=== PATIENT | male | born 1965 | race Caucasian/White ===

== ENCOUNTER 2020-10-01 22:05 | Observation (INO) | payer BC ==
--- NOTE | 2020-10-01 22:26 | ED ---
Dizziness HPI - General Chief Complaint: Recheck/Abnormal Lab/Rx Stated Complaint: ELevated BP, dizziness Time Seen by Provider: 10/01/20 22:25 Source: patient, RN notes reviewed, old records reviewed Mode of arrival: wheelchair Limitations: no limitations - History of Present Illness Initial Comments: This is a 54-year-old male DF for evaluation patient presents today for evaluation of multiple complaints, patient's or dizziness elevated heart rate s ymptoms of lightheadedness and flushness. Does have family history of heart disease with sudden in his brother young age. Patient suffers blood pressure issues but no other significant medical has no change in medications. No fevers no cough or congestion of travel history no sick contacts. No headaches. MD Complaint: dizziness, lightheadedness -: hour(s) Timing: gradual onset Description: sense of movement, "room spinning" History of Same: No History of Trauma: No Severity: mild Improves With: nothing Worsens With: nothing Associated Symptoms: ataxia, confusion, diaphoresis, shortness of breath, weakness - Related Data Home Medications Medication Instructions Recorded Confirmed amLODIPine [Norvasc] 2.5 mg PO DAILY 10/01/20 10/01/20 Allergies Allergy/AdvReac Type Severity Reaction Status Date / Time aspirin Allergy Rash/Hives Verified 10/01/20 23:20 erythromycin base Allergy Nausea & Verified 10/01/20 23:20 [From Erythrocin] Vomiting & Diarrhea Penicillins Allergy Nausea & Verified 10/01/20 23:20 Vomiting & Diarrhea Review of Systems ROS Statement: Those systems with pertinent positive or pertinent negative responses have been documented in the HPI. ROS Other: All systems not noted in ROS Statement are negative. Past Medical History Past Medical History: Hypertension Additional Past Medical History / Comment(s): vertigo History of Any Multi-Drug Resistant Organisms: None Reported Past Surgical History: Orthopedic Surgery Smoking Status: Never smoker Past Alcohol Use History: Occasional Past Drug Use History: None Reported General Exam Limitations: no limitations General appearance: alert, in no apparent distress, anxious Head exam: Present: atraumatic, normocephalic, normal inspection Eye exam: Present: normal appearance, PERRL, EOMI. Absent: scleral icterus, conjunctival injection, periorbital swelling ENT exam: Present: normal exam, mucous membranes moist Neck exam: Present: normal inspection. Absent: tenderness, meningismus, lymphadenopathy Respiratory exam: Present: normal lung sounds bilaterally. Absent: respiratory distress, wheezes, rales, rhonchi, stridor Cardiovascular Exam: Present: regular rate, normal rhythm, normal heart sounds. Absent: systolic murmur, diastolic murmur, rubs, gallop, clicks GI/Abdominal exam: Present: soft, normal bowel sounds. Absent: distended, tenderness, guarding, rebound, rigid Extremities exam: Present: normal inspection, full ROM, normal capillary refill. Absent: tenderness, pedal edema, joint swelling, calf tenderness Back exam: Present: normal inspection Neurological exam: Present: alert, oriented X3, CN II-XII intact Psychiatric exam: Present: normal affect, normal mood Skin exam: Present: warm, dry, intact, normal color. Absent: rash Course Vital Signs 10/01/20 10/02/20 22:06 00:14 Temperature 97.8 F Pulse Rate 93 89 Respiratory 18 18 Rate Blood Pressure 165/100 152/95 O2 Sat by Pulse 97 97 Oximetry - Reevaluation(s) Reevaluation #1: 10/02/20 00:55 Medical record is reviewed Reevaluation #2: 10/02/20 00:55 Patient remains with occasional symptoms here in the ER, able to amply without significant ataxia currently - Consultations Consultation #1: Focused Dr. Dominguez and we'll admit this patient EKG Findings - EKG Comments: EKG Findings:: EKG shows sinus rhythm 86 W[place] 136 QRS 98 QTc 437 - EKG Results: EKG: interpreted by ERMD (EKG is sinus rhythm 80 W[place] 160 QRS 92 QTC 440) Medical Decision Making - Medical Decision Making 54 male with concern for vertiginous CVA versus chest pain arrhythmia. Patient will be admitted for cardiology and neurology to see - Lab Data Result diagrams: 10/01/20 23:21 10/01/20 23:21 Lab Results 10/01/20 10/01/20 10/01/20 Range/Units 23:21 23:21 23:21 WBC 8.9 (3.8-10.6) k/uL RBC 4.82 (4.30-5.90) m/uL Hgb 15.3 (13.0-17.5) gm/dL Hct 44.0 (39.0-53.0) % MCV 91.3 (80.0-100.0) fL MCH 31.9 (25.0-35.0) pg MCHC 34.9 (31.0-37.0) g/dL RDW 12.5 (11.5-15.5) % Plt Count 207 (150-450) k/uL MPV 7.9 Neutrophils % 70 % Lymphocytes % 22 % Monocytes % 5 % Eosinophils % 1 % Basophils % 0 % Neutrophils # 6.2 (1.3-7.7) k/uL Lymphocytes # 2.0 (1.0-4.8) k/uL Monocytes # 0.5 (0-1.0) k/uL Eosinophils # 0.1 (0-0.7) k/uL Basophils # 0.0 (0-0.2) k/uL PT 11.3 (9.0-12.0) sec INR 1.1 (<1.2) APTT 25.5 (22.0-30.0) sec Sodium 141 (137-145) mmol/L Potassium 3.8 (3.5-5.1) mmol/L Chloride 108 H (98-107) mmol/L Carbon Dioxide 24 (22-30) mmol/L Anion Gap 9 mmol/L BUN 13 (9-20) mg/dL Creatinine 0.93 (0.66-1.25) mg/dL Est GFR (CKD-EPI)AfAm >90 (>60 ml/min/1.73 sqM) Est GFR (CKD-EPI)NonAf >90 (>60 ml/min/1.73 sqM) Glucose 109 H (74-99) mg/dL Plasma Lactic Acid Juan (0.7-2.0) mmol/L Calcium 9.9 (8.4-10.2) mg/dL Phosphorus 2.0 L (2.5-4.5) mg/dL Magnesium 2.0 (1.6-2.3) mg/dL Total Bilirubin 0.3 (0.2-1.3) mg/dL AST 30 (17-59) U/L ALT 46 (4-49) U/L Alkaline Phosphatase 101 (38-126) U/L Creatine Kinase 125 (55-170) U/L CK-MB (CK-2) (0.0-2.4) ng/mL Troponin I (0.000-0.034) ng/mL Total Protein 8.0 (6.3-8.2) g/dL Albumin 4.8 (3.5-5.0) g/dL 10/01/20 10/01/20 Range/Units 23:21 23:21 WBC (3.8-10.6) k/uL RBC (4.30-5.90) m/uL Hgb (13.0-17.5) gm/dL Hct (39.0-53.0) % MCV (80.0-100.0) fL MCH (25.0-35.0) pg MCHC (31.0-37.0) g/dL RDW (11.5-15.5) % Plt Count (150-450) k/uL MPV Neutrophils % % Lymphocytes % % Monocytes % % Eosinophils % % Basophils % % Neutrophils # (1.3-7.7) k/uL Lymphocytes # (1.0-4.8) k/uL Monocytes # (0-1.0) k/uL Eosinophils # (0-0.7) k/uL Basophils # (0-0.2) k/uL PT (9.0-12.0) sec INR (<1.2) APTT (22.0-30.0) sec Sodium (137-145) mmol/L Potassium (3.5-5.1) mmol/L Chloride (98-107) mmol/L Carbon Dioxide (22-30) mmol/L Anion Gap mmol/L BUN (9-20) mg/dL Creatinine (0.66-1.25) mg/dL Est GFR (CKD-EPI)AfAm (>60 ml/min/1.73 sqM) Est GFR (CKD-EPI)NonAf (>60 ml/min/1.73 sqM) Glucose (74-99) mg/dL Plasma Lactic Acid Juan 1.5 (0.7-2.0) mmol/L Calcium (8.4-10.2) mg/dL Phosphorus (2.5-4.5) mg/dL Magnesium (1.6-2.3) mg/dL Total Bilirubin (0.2-1.3) mg/dL AST (17-59) U/L ALT (4-49) U/L Alkaline Phosphatase (38-126) U/L Creatine Kinase (55-170) U/L CK-MB (CK-2) 0.7 (0.0-2.4) ng/mL Troponin I <0.012 (0.000-0.034) ng/mL Total Protein (6.3-8.2) g/dL Albumin (3.5-5.0) g/dL - Radiology Data Radiology results: report reviewed (CT brain CT had neck chest x-ray negative for acute disease), image reviewed Critical Care Time Critical Care Time: Yes Total Critical Care Time: 31 Disposition Clinical Impression: Dizziness, Vertigo Disposition: ADMITTED IP TO THIS [facility] Condition: Fair Is patient prescribed a controlled substance at d/c from ED?: No Referrals: Erick Dominguez MD [Primary Care Provider] - 1-2 days
[2020-10-01] MEDS ORDERED: SODIUM CHLORIDE 0.9% 500 ML 500 ML IV STA (23:11)
[2020-10-01] MEDS ORDERED: SODIUM CHLORIDE 0.9% 1,000 ML IV STA ×2 (23:11)
[2020-10-01 23:49] LABS: Basophils % (A) 0 %; Eosinophils # (A) 0.1 k/uL (0-0.7); Eosinophils % (A) 1 %; HGB 15.3 gm/dL (13.0-17.5); Lymphocytes % (A) 22 %; MCH 31.9 pg (25.0-35.0); MCHC 34.9 g/dL (31.0-37.0); MCV 91.3 fL (80.0-100.0); Mean Platelet Volume 7.9; Monocytes # (A) 0.5 k/uL (0-1.0); Monocytes % (A) 5 %; Neutrophils # (A) 6.2 k/uL (1.3-7.7); Neutrophils % (A) 70 %; Platelet Count 207 k/uL (150-450); RBC 4.82 m/uL (4.30-5.90); RDW 12.5 % (11.5-15.5); WBC 8.9 k/uL (3.8-10.6)
[2020-10-01 23:54] LABS: INR 1.1 (<1.2); Partial Thromboplastin Time 25.5 sec (22.0-30.0); Prothrombin Time 11.3 sec (9.0-12.0)
--- NOTE | 2020-10-01 23:54 | XR ---
EXAMINATION TYPE: XR chest 2V DATE OF EXAM: 10/01/2020 COMPARISON: 06/19/2015 HISTORY: Weakness TECHNIQUE: FINDINGS: Heart and mediastinum are normal. Lungs are clear. Diaphragm is normal. Bony thorax appears normal. Pulmonary vascularity is normal. IMPRESSION: Normal chest. No change.
[2020-10-02 00:13] LABS: Potassium 3.8 mmol/L (3.5-5.1)
--- NOTE | 2020-10-02 00:13 | CT ---
EXAMINATION TYPE: CT brain wo con DATE OF EXAM: 10/02/2020 COMPARISON: None HISTORY: vertigo CT DLP: 196.8 mGycm Automated exposure control for dose reduction was used. Exam performed without contrast. Ventricles have normal size. There is no mass effect nor midline shift. There is no sign of intracran ial hemorrhage. Calvarium is intact. There is no evidence of cerebral edema. IMPRESSION: Negative unenhanced head CT scan.
[2020-10-02 00:14] LABS: ALT 46 U/L (4-49); AST 30 U/L (17-59); African American GFR (CKD) >90 (>60 ml/min/1.73 sqM); Albumin 4.8 g/dL (3.5-5.0); Alkaline Phosphatase 101 U/L (38-126); Anion Gap 9 mmol/L; Blood Urea Nitrogen 13 mg/dL (9-20); Calcium 9.9 mg/dL (8.4-10.2); Carbon Dioxide 24 mmol/L (22-30); Chloride 108 mmol/L (98-107); Creatine Kinase 125 U/L (55-170); Glucose 109 mg/dL (74-99); Non-African American GFR(CKD) >90 (>60 ml/min/1.73 sqM); Sodium 141 mmol/L (137-145); Total Bilirubin 0.3 mg/dL (0.2-1.3)
--- NOTE | 2020-10-02 00:22 | CT ---
EXAMINATION TYPE: CT angio head neck DATE OF EXAM: 10/02/2020 COMPARISON: None HISTORY: vertigo CT DLP: 1960.8 mGycm Automated exposure control for dose reduction was used. CONTRAST: Performed with IV Contrast, patient injected with 65 mL of Isovue 370. There are 3-D post processed images. Images obtained from the aortic arch to the vertex of the brain with IV contrast. There is normal branching pattern of the great vessels on the aortic arch. There is bilateral arteria l flow in the subclavian arteries. There is arterial flow in the common internal and external carotid arteries bilaterally. There is art erial flow in both vertebral arteries. There is wide patency of the carotid artery bifurcations. Ther e is no evidence of carotid or vertebral artery aneurysm or dissection. There is arterial flow in the vertebrobasilar artery system. There is arterial flow in the anterior m iddle and posterior cerebral arteries. I see no evidence of intracranial aneurysm or neovascularity. There is no mass effect. There is normal enhancement of the venous sinuses. There is no evidence of i ntracranial arterial stenosis. IMPRESSION: Negative CT angiogram of the brain. Negative CT angiogram of the neck.
[2020-10-02 00:25] LABS: Creatine Kinase MB 0.7 ng/mL (0.0-2.4); Troponin I <0.012 ng/mL (0.000-0.034)
[2020-10-02] MEDS ORDERED: NITROGLYCERIN SL TABS 0.4 MG TAB SUBLINGUAL PRN (00:58)
[2020-10-02] MEDS: SODIUM CHLORIDE 0.9% 1,000 ML IV SCH ×2 (01:41→08:14)
[2020-10-02] MEDS ORDERED: amLODIPine 5 MG TAB PO SCH (09:00)
--- NOTE | 2020-10-02 09:52 | ECHOF ---
Referral Reason:Thrombus MEASUREMENTS -------- HEIGHT: 180.3 cm WEIGHT: 102.1 kg BP: 144/97 RVIDd: 3.2 cm (< 3.3) IVSd: 1.2 cm (0.6 - 1.1) LVIDd: 5.2 cm (3.9 - 5.3) LVPWd: 1.2 cm (0.6 - 1.1) IVSs: 1.9 cm LVIDs: 2.7 cm LVPWs: 2.2 cm LAESV Index (A-L): 26.37 ml/m Ao Diam: 3.4 cm (2.0 - 3.7) AV Cusp: 2.6 cm (1.5 - 2.6) LA Diam: 4.0 cm (2.7 - 3.8) MV EXCURSION: 27.072 mm (> 18.000) MV EF SLOPE: 206 mm/s (70 - 150) EPSS: 0.7 cm MV E Michele: 0.81 m/s MV DecT: 136 ms MV A Michele: 0.77 m/s MV E/A Ratio: 1.05 RAP: 5.00 mmHg RVSP: 16.66 mmHg FINDINGS -------- This was a technically good study. The left ventricular size is normal. There is mild concentric left ventricular hypertrophy. Overa ll left ventricular systolic function is normal with, an EF between 55 - 60 %. The right ventricle is normal in size. The left atrial size is normal. The right atrial size is normal. The aortic valve is trileaflet and appears structurally normal. The mitral valve is normal. Mild mitral regurgitation is present. The tricuspid valve appears structurally normal. Mild tricuspid regurgitation present. Right vent ricular systolic pressure is normal at < 35 mmHg. There is no pulmonic regurgitation present. The aortic root size is normal. Normal inferior vena cava with normal inspiratory collapse consistent with estimated right atrial pre ssure of 5 mmHg. There is no pericardial effusion. CONCLUSIONS -------- 1. The left ventricular size is normal. 2. There is mild concentric left ventricular hypertrophy. 3. Overall left ventricular systolic function is normal with, an EF between 55 - 60 %. 4. Mild mitral regurgitation is present. 5. Mild tricuspid regurgitation present. 6. There is no pericardial effusion. COMMERCIAL DESIGNER: Frances Solorzano [facility]
--- NOTE | 2020-10-02 11:24 | P.CRDCN ---
History of Present Illness History of present illness: This is a pleasant 54-year-old male past medical history significant for hypertension and vertigo. 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 We have been asked to see in consultation for lightheadedness and dizziness episode. Patient is seen and examined in the emergency department. No acute distress. Patient presents to the emergency department with an episode of lightheadedness and dizziness yesterday. He states he was doing his normal activities with his , cutting the grass, doing lawn work. He had a few cups of coffee that morning. He proceeded to do yoga and shower and started to feel lightheaded and dizzy. He did say he felt he was catching up on his water intake later that day. His lightheadedness and dizziness continued, he checked his blood pressure and heart rate which was 150s/90s and HR 90s, this is high for him. He states his symptoms were different from prior vertigo he had years ago. He was too lightheaded to drive his care to the emergency department. He did not feel like he was going to pass out. He is a non-smoker, non-diabetic. Denies history of stroke or RI. Family history of heart disease with sudden in his brother at young age. In 2016 he had a stress echo which was negative for reversible ischemia. Only medications at home include amlodpine 2.5mg daily. He denies chest pain, shortness of breath, palpitations, syncope, On arrival, EKG sinus rhythm, heart rate 86, no significant STT wave abnormalities. No prior EKG to compare. Chest x-ray with no acute cardiopulmonary process. CT brain was negative for any acute intracranial ab normality. CT angiogram of the neck was negative Laboratory data reviewed, troponin negative 3, CBC unremarkable, COVID-19 negative, sodium 141, potassium 3.8, serum creatinine 0.93, phosphorus 2.0, magnesium 2.0, creatine kinase 125, CKMB 0.7. Patient was hypertensive on admission SBP 150s-160s. Patient was given IV fluid 1.5L Bolus. He states his symptoms have improved. REVIEW OF SYSTEMS At the time of my exam: CONSTITUTIONAL: +lightheaded, +dizziness, Denies fever or chills. CARDIOVASCULAR: Denies chest pain, shortness of breath, orthopnea, PND or palpitations. RESPIRATORY: Denies cough. GASTROINTESTINAL: Denies abdominal pain, diarrhea, constipation, nausea or vomiting. MUSCULOSKELETAL: Denies myalgias. NEUROLOGIC: Denies numbness, tingling, headacbe or weakness. ENDOCRINE: Denies fatigue, weight change, polydipsia or polyurina. GENITOURINARY: Denies burning, hematuria or urgency with micturation. HEMATOLOGIC: Denies history of anemia or bleeding. PHYSICAL EXAMINATION Blood pressure 160/100 heart rate 92 afebrile and maintaining oxygen saturation 99% on room air CONSTITUTIONAL: No apparent distress. HEENT: Head is normocephalic. Pupils are equal, round. Sclerae anicteric. Mucous membranes of the mouth are moist. No JVD. No carotid bruit. CHEST EXAMINATION: Lungs are clear to auscultation. No chest wall tenderness is noted on palpation or with deep breathing. HEART EXAMINATION: Regular rate and rhythm. S1, S2 heard. No murmurs, gallops or rub. ABDOMEN: Soft, nontender. Positive bowel sounds. EXTREMITIES: 2+ peripheral pulses, no lower extremity edema and no calf tenderness. NEUROLOGIC EXAMINATION: Patient is awake, alert and oriented x3. ASSESSMENT Lightheaded, Dizziness, possibly related to dehydration. Hypertension PLAN Increase amlodipine to 5mg daily, monitor blood pressure An acute coronary event has been ruled out with no EKG evidence of ischemia and negative cardiac enzymes. 2D echocardiogram ordered and reviewed, revealed left ventricular systolic function is normal EF 55-60%, mild mitral regurgitation, mild tricuspid regurgitation Obtain orthostatic vital signs Perform stress echo test to assess for stress induced cardiac ischemia. If no acute findings on stress echo, from cardiology perspective, patient can be discharged home and follow up outpatient with Dr. Frazier Thank you kindly for this consultation. Nurse Practitioner note has been reviewed, I agree with a documented findings and plan of care. Patient was seen and examined. Past Medical History Past Medical History: Hypertension Additional Past Medical History / Comment(s): vertigo History of Any Multi-Drug Resistant Organisms: None Reported Past Surgical History: Orthopedic Surgery Smoking Status: Never smoker Past Alcohol Use History: Occasional Past Drug Use History: None Reported - Past Family History Father Family Medical History: Cancer Additional Family Medical History / Comment(s): Liver cancer Mother Family Medical History: Vascular Disorder Additional Family Medical History / Comment(s): Mother is . She of a abdominal aneurysm. Brother(s) Additional Family Medical History / Comment(s): Brother had cardiac ablations. He had a sudden . Medications and Allergies Home Medications Medication Instructions Recorded Confirmed Type amLODIPine [Norvasc] 2.5 mg PO DAILY 10/01/20 10/01/20 History Allergies Allergy/AdvReac Type Severity Reaction Status Date / Time aspirin Allergy Rash/Hives Verified 10/01/20 23:20 erythromycin base Allergy Nausea & Verified 10/01/20 23:20 [From Erythrocin] Vomiting & Diarrhea Penicillins Allergy Nausea & Verified 10/01/20 23:20 Vomiting & Diarrhea Physical Exam Vitals: Vital Signs Temp Pulse Resp BP Pulse Ox 10/02/20 06:35 97.9 F 91 18 144/97 97 10/02/20 03:00 86 18 136/94 97 10/02/20 01:10 97.7 F 74 18 154/94 98 10/02/20 00:14 89 18 152/95 97 10/01/20 22:06 97.8 F 93 18 165/100 97 Intake and Output 10/01/20 10/02/20 10/02/20 22:59 06:59 14:59 Other: Weight 102.058 kg Results 10/01/20 23:21 10/01/20 23:21 Cardiac Enzymes 10/01/20 10/01/20 10/02/20 Range/Units 23:21 23:21 03:12 AST 30 (17-59) U/L CK-MB (CK-2) 0.7 (0.0-2.4) ng/mL Troponin I <0.012 <0.012 (0.000-0.034) ng/mL 10/02/20 Range/Units 05:47 AST (17-59) U/L CK-MB (CK-2) (0.0-2.4) ng/mL Troponin I <0.012 (0.000-0.034) ng/mL Coagulation 10/01/20 Range/Units 23:21 PT 11.3 (9.0-12.0) sec APTT 25.5 (22.0-30.0) sec CBC 10/01/20 Range/Units 23:21 WBC 8.9 (3.8-10.6) k/uL RBC 4.82 (4.30-5.90) m/uL Hgb 15.3 (13.0-17.5) gm/dL Hct 44.0 (39.0-53.0) % Plt Count 207 (150-450) k/uL Comprehensive Metabolic Panel 10/01/20 Range/Units 23:21 Sodium 141 (137-145) mmol/L Potassium 3.8 (3.5-5.1) mmol/L Chloride 108 H (98-107) mmol/L Carbon Dioxide 24 (22-30) mmol/L BUN 13 (9-20) mg/dL Creatinine 0.93 (0.66-1.25) mg/dL Glucose 109 H (74-99) mg/dL Calcium 9.9 (8.4-10.2) mg/dL AST 30 (17-59) U/L ALT 46 (4-49) U/L Alkaline Phosphatase 101 (38-126) U/L Total Protein 8.0 (6.3-8.2) g/dL Albumin 4.8 (3.5-5.0) g/dL Current Medications Generic Name Dose Route Start Last Admin Trade Name Freq PRN Reason Stop Dose Admin Aspirin 325 mg 10/03/20 09:00 Aspirin 325 Mg Tab PO DAILY LUIS Sodium Chloride 1,000 mls @ 100 mls/hr 10/02/20 01:00 10/02/20 01:41 Saline 0.9% IV Not Given .Q10H LUIS Nitroglycerin 0.4 mg 10/02/20 00:58 Nitroglycerin Sl Tabs 0.4 Mg Tab SUBLINGUAL Q5M PRN Chest Pain Intake and Output 10/01/20 10/02/20 10/02/20 22:59 06:59 14:59 Other: Weight 102.058 kg 10/01/20 23:21 10/01/20 23:21
--- NOTE | 2020-10-02 12:26 | P.STRESS ---
- Stress Test Note Stress Test Results/Findings: Exam Performed: stress echo exercise Exam Date: 10/02/20 Reason for Exam: Chest pain Height: 5 ft 10 in Weight: 102.058 kg Protocol: Darci Stage: III Duration of Exercise: 9:02 Resting Heart Rate: 95 Resting Blood Pressure: 129/49 Maximum Achieved Heart Rate: 149 Maximum Achieved Blood Pressure: 163/77 85% PMHR: 143 100% PMHR: 168 METS: 10.3 Technologist Comment: Stress Test Results/Findings: This is a 54-year-old gentleman with history of hypertension who was admitted to the hospital with symptoms of dizziness and lightheadedness. Stress data: Baseline EKG showed sinus rhythm with normal [place] interval and QRS duration. Blood pressure at rest is 129/49 with pulse rate of 95. Patient walked on the Darci protocol for 9 minutes achieving a maximum heart rate of 149 with a blood pressure 163/77. EKGs taken during and after exercise did not reveal any changes of ischemia. Patient did not experience any chest pain or dizziness. Echo data: Baseline equal images showed normal wall motion and thickening. Exercise echo images showed augmentation of wall motion and thickening in all the segments. Final impression: #1. Negative stress test #2. Negative stress echo.
--- NOTE | 2020-10-02 14:48 | P.HPIM ---
History of Present Illness Chief Complaint: Altered mental status/dizziness This is a history and physical an 54-year-old white male with known history of hypertension and history of sinus tachycardia who is admitted secondary to "feeling off." The patient was doing noted yesterday and after this felt disoriented and somewhat lightheaded. No loss of consciousness but these episodes continued and were intermittent. This morning he felt as though there was inability to even drive appropriately with the lightheadedness. No visual loss or amaurosis fugax. No history of seizure disorder or chest pain stated. No overt palpitations. The patient was appropriately admitted computed tomography scan with contrast of the head shows no significant issue. However stress test was also negative. Neurology is not consulted. The patient now has no significant slurred speech no significant nausea, vomiting or diarrhea is stated. Review of Systems Constitutional: Denies chills, Denies fever Eyes: denies blurred vision, denies pain Ears, nose, mouth and throat: Denies headache, Denies sore throat Cardiovascular: Denies chest pain, Denies shortness of breath Gastrointestinal: Denies abdominal pain, Denies diarrhea, Denies nausea, Denies vomiting Integumentary: Denies pruritus, Denies rash Neurological: Reports as per HPI, Reports gait dysfunction, Denies double vision, Denies loss of vision, Denies memory loss Psychiatric: Denies anxiety, Denies depression Past Medical History Past Medical History: Hypertension Additional Past Medical History / Comment(s): vertigo History of Any Multi-Drug Resistant Organisms: None Reported Past Surgical History: Orthopedic Surgery Additional Past Surgical History / Comment(s): R rotator cuff repair, R knee arthroscopy, colonoscopy/benign polypectomy, bilateral myringotomy/tubes. Past Anesthesia/Blood Transfusion Reactions: No Reported Reaction Smoking Status: Never smoker Past Alcohol Use History: Occasional Past Drug Use History: None Reported - Past Family History Father Family Medical History: Cancer Additional Family Medical History / Comment(s): Liver cancer Mother Family Medical History: Vascular Disorder Additional Family Medical History / Comment(s): Mother is . She of a abdominal aneurysm. Brother(s) Additional Family Medical History / Comment(s): Brother had cardiac ablations. He had a sudden . Medications and Allergies Home Medications Medication Instructions Recorded Confirmed Type amLODIPine [Norvasc] 2.5 mg PO DAILY 10/01/20 10/01/20 History Allergies Allergy/AdvReac Type Severity Reaction Status Date / Time aspirin Allergy Rash/Hives Verified 10/01/20 23:20 erythromycin base Allergy Nausea & Verified 10/01/20 23:20 [From Erythrocin] Vomiting & Diarrhea Penicillins Allergy Nausea & Verified 10/01/20 23:20 Vomiting & Diarrhea Physical Exam Vitals: Vital Signs Temp Pulse Resp BP Pulse Ox 10/02/20 13:39 98.9 F 98 18 145/98 98 10/02/20 12:05 105 H 18 135/90 98 10/02/20 09:47 92 18 160/100 99 10/02/20 06:35 97.9 F 91 18 144/97 97 10/02/20 03:00 86 18 136/94 97 10/02/20 01:10 97.7 F 74 18 154/94 98 10/02/20 00:14 89 18 152/95 97 10/01/20 22:06 97.8 F 93 18 165/100 97 Intake and Output 10/01/20 10/02/20 10/02/20 22:59 06:59 14:59 Other: Weight 102.058 kg 102.058 kg - Constitutional General appearance: no acute distress - EENT Eyes: EOMI - Neck Neck: no lymphadenopathy - Respiratory Respiratory: bilateral: CTA - Cardiovascular Rhythm: regular Heart sounds: normal: S1, S2 Abnormal Heart Sounds: no S3 Gallop - Gastrointestinal General gastrointestinal: soft, no tenderness - Integumentary Integumentary: no cellulitis - Neurologic Neurologic: CNII-XII intact Results CBC & Chem 7: 10/01/20 23:21 10/01/20 23:21 Labs: Abnormal Lab Results - Last 24 Hours (Table) 10/01/20 Range/Units 23:21 Chloride 108 H (98-107) mmol/L Glucose 109 H (74-99) mg/dL Phosphorus 2.0 L (2.5-4.5) mg/dL Thrombosis Risk Factor Assmnt - Choose All That Apply Any of the Below Risk Factors Present?: Yes Each Factor Represents 1 point: Age 41-60 years, Obesity (BMI >25) Other Risk Factors: No Other congenital or acquired thrombophilia - If yes, enter type in comment: No Thrombosis Risk Factor Assessment Total Risk Factor Score: 2 Thrombosis Risk Factor Assessment Level: Low Risk Assessment and Plan (1) Hypertension Current Visit: Yes Status: Acute Code(s): I10 - ESSENTIAL (PRIMARY) HYPERTENSION SNOMED Code(s): 06853402 (2) Neurologic gait dysfunction Current Visit: Yes Status: Acute Code(s): R26.9 - UNSPECIFIED ABNORMALITIES OF GAIT AND MOBILITY SNOMED Code(s): 26745755 (3) Dizziness Current Visit: Yes Status: Acute Code(s): R42 - DIZZINESS AND GIDDINESS SNOMED Code(s): 311714648 (4) Vertigo Current Visit: Yes Status: Acute Code(s): R42 - DIZZINESS AND GIDDINESS SNOMED Code(s): 112508415 Plan: Adjust Norvasc appropriate for hypertension. Await neurologic evaluation. Question need for MRI. Cardiology stress test is negative. Continue watch blood pressure closely. IV to KVO. Anticipate discharge in the next 24
[2020-10-02] MEDS: ASPIRIN 81 MG PO SCH (20:53)
--- NOTE | 2020-10-02 22:09 | P.CNNES ---
History of Present Illness Consult date: 10/02/20 Requesting physician: Mina Hester Reason for Consult: Vertigo History of Present Illness: Patient is a 54-year-old male came to the hospital yesterday at 10 PM for 2 episodes of lightheadedness. 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 It lasted for 30 seconds. He did not pay much attention to it. He went home, did some yard work, and later was sitting in the deck. He states that at around 10 PM he got up to take shower and the same feeling came back. The symptoms persisted when he went into the shower, and lasted for about several minutes to half an hour. He asked his family members to check the blood pressure which was 154/100. Patient got concerned therefore decided to come to the ER to be checked out. He did not have any slurred speech, facial droop, problem with the vision, double vision or any focal symptoms otherwise. Patient's vitals on arrival blood pressure 165/100, pulse rate 93, temperature 97.8. Blood pressure has improved now 140/94. CT head was normal. On my review, there is evidence of some opacification of the ethmoid sinus as well as some mucosal congestion of the maxillary sinuses bilaterally. No air fluid level. External auditory canal is clear. CTA of head and neck was normal. No dissection or stenosis. EKG shows normal sinus rhythm with sinus arrhythmia. 2-D echo shows normal left-ventricular size. Mild concentric LVH. EF is 55- 60%. Mild MR. Chest x-ray is normal. EKG shows normal sinus rhythm. Patient had a negative stress test and negative stress echo. Blood test shows normal CBC, PT/PTT, normal electrolytes, renal functions, hepatic panel. CK is normal 125. Troponins negative. Nelson virus PCR negative. Patient states that he has been rated for blood pressure for the last 4 months for it was running around 140/80. 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 He remembers when he was getting out of bed in the morning he had this episode. It lasted for 3-4 days. He underwent extensive workup including ENG, MRI of the internal auditory canal (performed at [facility]), which all came back negative and he was diagnosed with BPPV. He was mostly fine, until couple years ago [place], had similar symptoms. He went to the hospital was again diagnosed with BPPV. In the last fall he was in [facility], when he had similar symptoms lasted for couple days. He did not seek medical attention. He performed his home exercise of Reta-Hallpike and symptoms went away. In between these 3 major episodes, he would have minor symptoms, that was not very bothersome. Patient states that lately he has developed pulsatile tinnitus involving the left ear for the last couple months. He states when he moves his eyes fast, he becomes lightheaded although it is not as severe. Patient denies any tobacco use, very little alcohol. Review of Systems As mentioned in detail in HPI. All other review of systems completely unremarkable. Denies any chest pain shortness of breath wheezing or cough. Denies any focal symptoms except as mentioned above. Past Medical History Past Medical History: Hypertension Additional Past Medical History / Comment(s): vertigo History of Any Multi-Drug Resistant Organisms: None Reported Past Surgical History: Orthopedic Surgery Additional Past Surgical History / Comment(s): R rotator cuff repair, R knee arthroscopy, colonoscopy/benign polypectomy, bilateral myringotomy/tubes. Past Anesthesia/Blood Transfusion Reactions: No Reported Reaction Smoking Status: Never smoker Past Alcohol Use History: Occasional Past Drug Use History: None Reported - Past Family History Father Family Medical History: Cancer Additional Family Medical History / Comment(s): Liver cancer Mother Family Medical History: Vascular Disorder Additional Family Medical History / Comment(s): Mother is . She of a abdominal aneurysm. Brother(s) Additional Family Medical History / Comment(s): Brother had cardiac ablations. He had a sudden . Medications and Allergies Home Medications Medication Instructions Recorded Confirmed Type Aspirin 81 mg PO DAILY chew 10/03/20 Rx amLODIPine [Norvasc] 5 mg PO DAILY #30 tab 10/03/20 Rx Allergies Allergy/AdvReac Type Severity Reaction Status Date / Time aspirin Allergy Rash/Hives Verified 10/01/20 23:20 erythromycin base Allergy Nausea & Verified 10/01/20 23:20 [From Erythrocin] Vomiting & Diarrhea Penicillins Allergy Nausea & Verified 10/01/20 23:20 Vomiting & Diarrhea Physical Examination - Vital Signs Vital Signs: Vital Signs Temp Pulse Pulse Resp BP BP Pulse Ox 10/02/20 14:51 98 F 84 16 140/94 96 10/02/20 13:39 98.9 F 98 18 145/98 98 10/02/20 12:05 105 H 18 135/90 98 10/02/20 09:47 92 18 160/100 99 10/02/20 06:35 97.9 F 91 18 144/97 97 10/02/20 03:00 86 18 136/94 97 10/02/20 01:10 97.7 F 74 18 154/94 98 10/02/20 00:14 89 18 152/95 97 10/01/20 22:06 97.8 F 93 18 165/100 97 Intake and Output 10/02/20 10/02/20 10/02/20 06:59 14:59 22:59 Other: # Voids 1 Weight 102.058 kg Patient is a middle aged male, in no acute distress. Patient is alert awake oriented to time place and person. Speech and language functions are normal. Attention, concentration and fund of knowledge is adequate. On cranial examination, pupils are equal, round and reacting to light, visual scott are full on confrontation with no neglect, extraocular muscles are intact with no nystagmus. Face is symmetric, tongue protrudes to the midline. Palatal elevation and sensation normal, hearing and shoulder shrug normal, facial sensation normal. Shoulder shrug normal. On muscle strength testing, there is no pronator drift and the strength is n ormal in arms and legs distally and proximally. Deep tendon reflexes are symmetric 1+ to 2+ and plantars downgoing. Sensory to touch is equal with no neglect. Cerebellar function showed no ataxia for [id number] or qggv-ah-[id number] testing. No dysdiadochokinesia. Tone and bulk of muscles normal. Gait normal. On general examination, there is no carotid bruit or murmur, S1-S2 audible. Abdomen is soft nontender. Chest is clear. Peripheral pulses are present. No edema. Results - Laboratory Findings CBC and BMP: 10/01/20 23:21 10/01/20 23:21 Abnormal Lab Findings: Abnormal Labs 10/01/20 23:21 Chloride 108 H Glucose 109 H Phosphorus 2.0 L Assessment and Plan Assessment: * Episodes of dizziness, lightheadedness, probably due to hypertension versus peripheral vestibular dysfunction. Patient's computed tomography scan of the head revealed evidence of opacification of some ethmoid sinus and mucosal thickening of the maxillary sinus. Patient had no focal symptoms, therefore TIA appears unlikely. * Hypertension * Hyperlipidemia * History of vertigo, diagnosed with BPPV. * Tinnitus. Plan: * Patient has extensive workup, and all workup is negative. Patient's current neurological examination is normal. MRI does not appear to be indicated at this time, and has a very low yield. * Patient was recommended to optimize vascular risk factors including control of hypertension. We will check fasting a.m. lipid panel and hemoglobin A1c. * Suggest starting aspirin 81 mg daily. Patient states that he has tried it when he was a child and had some hives. I think it may be worth trying it again. He agreed. * B12, folate. * We will follow.
[2020-10-03 03:38] LABS: Folate, Serum 22.3 ng/mL
[2020-10-03 04:27] LABS: Hemoglobin A1C 5.3 % (4.0-6.0)
[2020-10-03 08:00] VITALS: BP 145/93; PULSE 90; TEMP 98
--- NOTE | 2020-10-03 08:14 | P.DS ---
Providers Date of admission: 10/02/20 00:58 Attending physician: Erick Dominguez Consults: 10/02/20 00:58 Consult Physician Routine Consulting Provider: Mana Fuller Consult Reason/Comments: vertigo Do you want consulting provider notified?: Yes Consult Physician Urgent Consulting Provider: Trpip Cruz Consult Reason/Comments: dizziness Do you want consulting provider notified?: Yes Primary care physician: Erick Dominguez - Discharge Diagnosis(es) (1) Hypertension Current Visit: Yes Status: Acute (2) Neurologic gait dysfunction Current Visit: Yes Status: Acute (3) Dizziness Current Visit: Yes Status: Acute (4) Vertigo Current Visit: Yes Status: Acute Hospital Course: The patient was admitted for presyncope vertigo and dizziness with possible TIA. Workup was essentially negative. The patient did have some vague symptoms but cardiology and neurology have signed off on the patient. The patient will be started on appropriate aspirin and increased of blood pressure medication. Will follow-up with me in about 5-7 days. Patient Condition at Discharge: Fair Plan - Discharge Summary Discharge Rx Participant: No New Discharge Prescriptions: New RX: Aspirin 81 mg PO DAILY chew amLODIPine [Norvasc] 5 mg PO DAILY #30 tab Discontinued amLODIPine [Norvasc] 2.5 mg PO DAILY Discharge Medication List RX: Aspirin 81 mg PO DAILY chew 10/03/20 [Rx] amLODIPine [Norvasc] 5 mg PO DAILY #30 tab 10/03/20 [Rx] Follow up Appointment(s)/Referral(s): Erick Dominguez MD [Primary Care Provider] - 1-2 days Cleopatra Frazier MD [STAFF PHYSICIAN] - 2 Weeks Discharge Disposition: HOME SELF-CARE
[2020-10-03] MEDS: ASPIRIN 81 MG PO SCH (08:22)
[2020-10-03 08:36] VITALS: RESP 17
[2020-10-03] MEDS ORDERED: amLODIPine 10 MG TAB PO SCH (09:00)
[2020-10-03] MEDS ORDERED: ASPIRIN 325 MG TAB PO SCH (09:00)
[2020-10-03 09:30] LABS: Chol/HDL Ratio 4.24
== END 2020-10-03 09:21 | disposition home or self-care (01) ==
LOC: EC 22:05 → 6NMEDSUR 10-02 00:58
PROVIDERS: ADMIT Family Medicine; ATTEND Family Medicine
DX: I10 Essential (primary) hypertension (principal); H81.10 Benign paroxysmal vertigo, unspecified ear; I49.8 Other specified cardiac arrhythmias; H93.A2 Pulsatile tinnitus, left ear; I08.1 Rheumatic disorders of both mitral and tricuspid valves; E78.5 Hyperlipidemia, unspecified; R27.0 Ataxia, unspecified; R26.9 Unspecified abnormalities of gait and mobility; R53.1 Weakness; R55 Syncope and collapse; R61 Generalized hyperhidrosis; E66.9 Obesity, unspecified; Z68.32 Body mass index [BMI] 32.0-32.9, adult; Z20.822 Contact with and (suspected) exposure to COVID-19; Z79.899 Other long term (current) drug therapy; Z88.6 Allergy status to analgesic agent; Z88.1 Allergy status to other antibiotic agents; Z88.0 Allergy status to penicillin; Z86.010 Personal history of colon polyps; Z98.890 Other specified postprocedural states; Z82.49 Family history of ischemic heart disease and other diseases of the circulatory system; Z80.0 Family history of malignant neoplasm of digestive organs
CPT/HCPCS: 96361 ×2; 96360; 99291; 36415; 93005 ×2; 93306; 93351; 83880; 80061; 80053; 82607; 82550; 82553; 82746; 83605; 83735; 84100; 84484 ×2; 85025; 85610; 85730; 83036; 87635; 71046; 70496; 70450; 70498; G0378 ×2; Q9967